=== PATIENT | male | born 1960 | race Caucasian/White ===

== ENCOUNTER 2020-11-24 13:38 | Emergency (ER) | payer OTHER, BC ==
[2020-11-24 13:49] VITALS: BMI 28.2
[2020-11-24] MEDS ORDERED: CASIRIVIMAB (REGN10933) 1,200 MG, IMDEVIMAB (REGN10987) 1,200 MG in SODIUM CHLORIDE 230 ML IVPB ONE (14:25)
[2020-11-24 17:14] VITALS: BP 115/68; PULSE 68; TEMP 98.2
== END 2020-11-24 17:22 | disposition home or self-care (01) ==
LOC: JER 13:38
DX: U07.1 COVID-19 (principal)
CPT/HCPCS: 99284-25; M0243; Q0243